=== PATIENT | male | born 1975 | race American Indian/Alaskan Native ===

== ENCOUNTER 2019-01-07 05:41 | Day surgery (SDC) | payer MEDICAID, OTHER ==
[2019-01-06 14:26] LABS: BASOPHILS # (AUTO) 0.1 X10'3 (0-0.2); BASOPHILS % (AUTO) 1.1 % (0-1); EOSINOPHILS # (AUTO) 0.7 X10'3 (0-0.9); LYMPHOCYTES # (AUTO) 2.5 X10'3 (1.1-4.8); LYMPHOCYTES % (AUTO) 25.5 % (21-51); MEAN CORPUSCULAR HEMOGLOBIN 29.5 PG (27.0-31.0); MEAN CORPUSCULAR HGB CONC 33.8 g/dL (33.0-36.5); MEAN CORPUSCULAR VOLUME 87.5 FL (78-98); MEAN PLATELET VOLUME 7.6 FL (7.4-10.4); MONOCYTES # (AUTO) 0.8 X10'3 (0-0.9); MONOCYTES % (AUTO) 7.9 % (2-12); NEUTROPHILS # (AUTO) 5.8 X10'3 (1.8-7.7); NEUTROPHILS % (AUTO) 58.5 % (42-75); PRE OP HEMATOCRIT 45.6 % (42.0-52.0); PRE OP HEMOGLOBIN 15.4 g/dL (14.0-17.9); PRE OP PLATELET COUNT 289 X10'3 (140-440); RED BLOOD COUNT 5.22 X10'6 (4.70-6.10); RED CELL DISTRIBUTION WIDTH 14.3 % (11.5-14.5)
[2019-01-06 14:29] LABS: CLARITY,URINE CLEAR (Clear); COLOR,URINE YELLOW (Yellow); GLUCOSE, URINE NEGATIVE (Neg); KETONES,URINE NEGATIVE (Neg); LEUKOCYTE ESTERASE ,URINE NEGATIVE (Neg); NITRITES, URINE NEGATIVE (Neg); OCCULT BLOOD,URINE NEGATIVE (Neg); PROTEIN,URINE NEGATIVE (Neg); UROBILINOGEN,URINE 0.2 E.U/dL (0.2-1.0)
[2019-01-06 14:30] LABS: UA COLLECTION TYPE CLN CATCH MIDSTREAM
[2019-01-06 14:35] LABS: ALBUMIN 3.7 G/DL (3.4-5.0); ALBUMIN/GLOBULIN RATIO 0.8 (1.1-1.5); ALKALINE PHOSPHATASE 110 IU/L (46-116); BLOOD UREA NITROGEN 17 MG/DL (7-18); BUN/CREATININE RATIO 15.3 (5.4-32.0); CALCIUM 8.5 MG/DL (8.5-10.1); CHLORIDE 106 MMOL/L (99-107); CREATININE 1.11 MG/DL (0.60-1.10); PRE OP ALT 45 U/L (30-65); PRE OP ANION GAP 10 (8-16); PRE OP AST 26 U/L (10-37); PRE OP BILIRUB, TOTAL 0.6 MG/DL (0.0-1.0); PRE OP GLUCOSE 102 MG/DL (70-104); PRE OP POTASSIUM 3.7 MMOL/L (3.4-5.1); PRE OP SODIUM 141 MMOL/L (135-145); TOTAL CARBON DIOXIDE 25.3 MMOL/L (24-32); TOTAL PROTEIN 8.1 G/DL (6.4-8.2); eGFR 73 ML/MIN
[2019-01-07] VITALS (9 sets, daily range): BP systolic 119–139; BP diastolic 68–88
[~2019-01-07] VITALS: Ht 185.4 cm; Wt 144.3 kg
[~2019-01-07 05:41] MED LIST: BUSP5TAB3 PO; CITA40TA11 PO; CLINDAmcin 900mg/NS 50ml IVPB 50 ML IV ONE; TRAZ-219 PO; famotidine 20mg tablet PO ONE; ringers solution, lacted 1,000 ML IV SCH; vancomycin inj 1,500 MG in normal saline 300ml IV soln IV ONE
[2019-01-07] MEDS ORDERED: triamcinolone acetonide 40mg/ml inj ONE (07:03)
[2019-01-07] MEDS ORDERED: BUPIVAcaine/PF 2.5mg/ml (0.25%) 10ml vial ONE (07:03)
[2019-01-07] MEDS ORDERED: sevoflurane 250ml liquid IH ONE (07:17)
[2019-01-07] MEDS ORDERED: fentaNYL/PF 50MCG/1 ML 2ML syringe ONE (07:24)
[2019-01-07] MEDS ORDERED: LIDOcaine 2% (20mg/ml) 5ml vial ONE (07:25)
[2019-01-07] MEDS ORDERED: midazolam 2 mg/2 ml injection ONE (07:25)
[2019-01-07] MEDS ORDERED: propofol inj 20 ML IV ONE (07:33)
[2019-01-07] MEDS ORDERED: dexamethasone sod phosphate 4mg/ml inj. ONE (07:33)
[2019-01-07] MEDS ORDERED: ondansetron/PF 4mg/2ml inj ONE (07:33)
[2019-01-07] MEDS ORDERED: ketorolac trometh. 30mg/ml inj. ONE (07:39)
[2019-01-07] MEDS ORDERED: ondansetron/PF 4mg/2ml inj IV PRN (08:00)
[2019-01-07] MEDS ORDERED: meperidine/PF 25mg/ml syringe IV PRN ×3 (08:00)
[2019-01-07] MEDS ORDERED: ringers solution, lacted 1,000 ML IV SCH (08:00)
[2019-01-07] MEDS ORDERED: morphine 4 MG/ML inj SYRINge IV PRN ×2 (08:00)
[2019-01-07] MEDS ORDERED: proCHLORperazine 10 MG/2 ml inj IV PRN (08:00)
--- NOTE | 2019-01-07 08:45 | NUR ---
Received from OR via BED, accompanied by Anesthesiologist DR JOHN-- and report given by Anesthesiolgist. PATIENT A&OX4, DENIES PAIN, V/S WNL, NEUROVASCULAR CHECKS INTACT, 18G PIV LUE, SCD ON, DRESSING TO RIGHT KNEE CDI
--- NOTE | 2019-01-07 09:45 | NUR ---
PATIENT A&OX4, DENIES PAIN, V/S WNL, CSM INTACT, DRESSING TO RIGHT KNEE CDI, IV D/C, SCD REMOVED. I HAVE REVIEWED D/C INSTRUCTIONS WITH PATIENT AND FAMILY AND THEY HAVE VERBALIZED UNDERSTANDING. PATIENT D/C HOME WITH ALL BELONGINGS AND FAMILY GAVE TRANSPORT HOME.
== END 2019-01-07 09:45 | disposition home or self-care (01) ==
LOC: PAS 05:41
PROVIDERS: ATTEND Orthopaedic Surgery
DX: M23.221 Derangement of posterior horn of medial meniscus due to old tear or injury, right knee (principal); M23.200 Derangement of unspecified lateral meniscus due to old tear or injury, right knee; M22.41 Chondromalacia patellae, right knee; G89.4 Chronic pain syndrome; F41.9 Anxiety disorder, unspecified; E66.01 Morbid (severe) obesity due to excess calories; Z68.41 Body mass index [BMI] 40.0-44.9, adult; M17.12 Unilateral primary osteoarthritis, left knee; Z72.89 Other problems related to lifestyle; Z79.899 Other long term (current) drug therapy; Z87.891 Personal history of nicotine dependence
CPT/HCPCS: 29873; 29879; 29880; 36415; 80053; 81003; 82948; 85025; 93005; A6449; J1100; J1885; J2001; J2250; J2405; J2704; J3010; J3301; J3370; J3490; A6250; A7000; J7030; J7120